=== PATIENT | male | born 1955 | race Caucasian/White ===

== ENCOUNTER → 2016-08-02 | Outpatient (CLI) | payer BC ==
--- NOTE | 2016-08-05 08:03 | US ---
Venous Doppler Study of right Lower Extremity Clinical Indications: Right leg pain for 9 days. Rule out DVT. Technique: High-frequency transducer was used for imaging and Doppler study of the deep veins of the leg from the upper calf to the groin. Pulsed Doppler and color Doppler were utilized, along with va rious maneuvers, to assess flow in the deep veins. Findings: The deep veins of the groin, thigh, knee, and upper calf are well displayed and are normal ly compressible. Doppler flow patterns are unremarkable. There is no evidence of deep venous thromb osis. There is normal compression of the greater saphenous vein without superficial thrombosis. There is some edema in the posterior superior calf subcutaneous tissues. Impression: No evidence of deep vein thrombosis in the right leg. These findings were called to Dr. Singh's house office at 1220 hours.
== END ==
LOC: CIMAGING 11:21
PROVIDERS: ATTEND Internal Medicine
DX: M79.89 Other specified soft tissue disorders (principal); M79.604 Pain in right leg
CPT/HCPCS: 93971-PO